=== PATIENT | female | born 1995 | race Caucasian/White ===

== ENCOUNTER 2021-02-22 10:36 | Outpatient (CLI) | payer OTHER ==
[~2021-02-22 10:36] MED LIST: KETO10TA2 PO; NORFLEX100MG PO
== END 2021-02-22 11:30 | disposition home or self-care (01) ==
LOC: OBS/DEL 10:36
PROVIDERS: ATTEND Specialist
DX: O26.892 Other specified pregnancy related conditions, second trimester (principal); N89.8 Other specified noninflammatory disorders of vagina; Z3A.25 25 weeks gestation of pregnancy

== ENCOUNTER 2021-03-10 10:59 | Outpatient (CLI) | payer OTHER | END 2021-03-10 13:57 | disposition home or self-care (01) | LOC: OBS/DEL 10:59 | PROVIDERS: ATTEND Specialist | DX: O23.42 Unspecified infection of urinary tract in pregnancy, second trimester (principal); O26.892 Other specified pregnancy related conditions, second trimester; N89.8 Other specified noninflammatory disorders of vagina; O26.852 Spotting complicating pregnancy, second trimester; Z3A.27 27 weeks gestation of pregnancy ==

== ENCOUNTER 2021-03-18 15:08 | Emergency (ER) | payer OTHER ==
[~2021-03-18] VITALS: Ht 160 cm; Wt 68.0 kg
[2021-03-18] MEDS ORDERED: PRENA1 CHEW TA1.4 MG (15:15)
== END 2021-03-18 21:06 | disposition home or self-care (01) ==
LOC: ER 15:08
DX: K52.9 Noninfective gastroenteritis and colitis, unspecified (principal); R10.9 Unspecified abdominal pain; Z33.1 Pregnant state, incidental

== ENCOUNTER 2021-05-29 18:33 | Outpatient (CLI) | payer OTHER ==
[~2021-05-29 18:33] MED LIST changes: +PRENA1 CHEW TA1.4 MG
== END 2021-05-29 18:53 | disposition home or self-care (01) ==
LOC: NST 18:33
PROVIDERS: ATTEND Specialist
DX: Z34.83 Encounter for supervision of other normal pregnancy, third trimester (principal)

== ENCOUNTER 2021-05-30 07:57 | Inpatient (IN) | payer OTHER ==
[~2021-05-30] VITALS: Ht 162.6 cm; Wt 65.8 kg
== END 2021-06-01 12:19 | disposition home or self-care (01) | DRG 807 ==
LOC: LDR 07:57 → OB/GYN 07:57
PROVIDERS: ADMIT Specialist; ATTEND Specialist
PROC: 10E0XZZ Delivery of Products of Conception, External Approach (ICD-10-PCS; principal; 2021-05-30)
PROC: 4A1HXFZ Monitoring of Products of Conception, Cardiac Rhythm, External Approach (ICD-10-PCS; 2021-05-30)
DX: O24.420 Gestational diabetes mellitus in childbirth, diet controlled (principal); Z37.0 Single live birth; O99.824 Streptococcus B carrier state complicating childbirth; Z3A.39 39 weeks gestation of pregnancy